=== PATIENT | female | born 1980 | race Caucasian/White ===

== ENCOUNTER 2017-05-08 21:24 | Emergency (ER) | payer OTHER ==
[~2017-05-08] VITALS: Ht 162.6 cm; Wt 55.3 kg
--- NOTE | 2017-05-08 23:04 | NUR ---
PT BIBSELF C/O INTERMITTENT HEART PALPITATIONS X SATURDAY S/P TAKING Z-PACK FOR BRONCHITIS, DENIES ANY CP. PT AOX3 RR EVEN AND UNLABORED. NO SOB NOTED. NAD NOTED. NO NVD AT THIS TIME. PT NOT DIAPHORETIC. PT GOWNED AND PLACED ON MONITOR. WAITING FOR MD CONCEPCION.
--- NOTE | 2017-05-08 23:13 | NUR ---
DR. CAREY AT BEDSIDE FOR EVAL.
[2017-05-08 23:36] LABS: BASOPHILS % (AUTO) 0.4 % (0.0-2.0); EOSINOPHILS % (AUTO) 0.5 % (0.0-6.0); HEMATOCRIT 36 % (33-45); HEMOGLOBIN 12.6 g/dL (11.5-14.8); LYMPHOCYTES # (AUTO) 1.5 /CMM (0.8-4.8); MEAN CORPUSCULAR HEMOGLOBIN 32 PG (26.0-33.0); MEAN CORPUSCULAR HGB CONC 35 g/dl (31.0-36.0); MEAN CORPUSCULAR VOLUME 92 fL (82-100); MONOCYTES # (AUTO) 0.5 /CMM (0.1-1.30); MONOCYTES % (AUTO) 6.3 % (2.0-12.0); NEUTROPHILS # (AUTO) 5.7 /CMM (1.8-8.9); NEUTROPHILS % (AUTO) 72.8 % (43.0-81.0); PLATELET COUNT (AUTO) 498 /CMM (150-450); RDW COEFFICIENT OF VARIATION 10.9 (11.5-15.0); RED BLOOD CELL COUNT(AUTO) 3.95 MIL/uL (4.0-5.2); WHITE BLOOD COUNT (AUTO) 7.7 K/uL (4.3-11.0)
[2017-05-09 00:13] LABS: CALCIUM, SERUM 8.9 mg/dL (8.5-10.1); CREATININE 0.8 mg/dL (0.6-1.3); POTASSIUM 3.7 mmol/L (3.5-5.1)
--- NOTE | 2017-05-09 00:20 | NUR ---
Patient ambulatory w/ steady gait w/ resp even & unlabored, denies any cp w/ nad noted. Patient discharged to home in stable condition. Written and verbal after care instructions given. Patient verbalizes understanding of instruction.
[2017-05-09 00:21] VITALS: BP 140/87
== END 2017-05-09 00:23 | disposition home or self-care (01) ==
LOC: ER 21:29
DX: R00.2 Palpitations (principal); I49.3 Ventricular premature depolarization
CPT/HCPCS: 36415; 80048-TC; 85025-TC; A4606; Z7610